=== PATIENT | female | born 1975 | race Caucasian/White ===

== ENCOUNTER 2016-11-03 00:27 | Emergency (ER) | payer BC ==
[~2016-11-03] VITALS: Ht 165.1 cm; Wt 51.4 kg
[~2016-11-03 00:27] MED LIST: BCPILLS PO
[2016-11-03 00:29] VITALS: TEMP 37.1; Ht 165.1 cm; Wt 51.4 kg
[2016-11-03] MEDS ORDERED: SODIUM CHLORIDE 0.9% 1000ML 1,000 ML IV STA (00:38)
[2016-11-03] MEDS ORDERED: LORAZEPAM 2 MG/ML 1 ML VIAL IV STA (00:38)
[2016-11-03] MEDS ORDERED: LXP10 PO (00:59)
[2016-11-03] MEDS ORDERED: DESO1TAB17 PO (00:59)
[2016-11-03] MEDS ORDERED: XNX25 PO (00:59)
[2016-11-03 01:08] LABS: BASO % 0.2 %; BASO ABS # 0.02 K/uL (0-0.2); COMPLETE YES; EOS % 0.7 %; HEMATOCRIT 36.3 % (37-47); IG% 0.1 %; LYMPH % 44.7 %; LYMPH ABS # 3.87 K/uL (1.2-3.4); MEAN CELL VOLUME 90.5 fL (80-100); MEAN CORPUSCULAR HEMOGLOBIN 30.7 pg (25-34); MEAN CORPUSCULAR HGB CONC 33.9 g/dl (32-36); MEAN PLATELET VOLUME 10.2 fL (7.4-10.4); MONO % 4.7 %; NEUT % 49.6 %; PLATELET COUNT 261 K/uL (130-400); RED BLOOD COUNT 4.01 M/uL (4.2-5.4); WHITE BLOOD COUNT 8.65 K/uL (4.8-10.8)
[2016-11-03 01:13] LABS: BLOOD UREA NITROGEN 11 mg/dl (7-18); BUN/CREATININE RATIO 12.7 (10-20); CALCIUM 9.4 mg/dl (8.5-10.1); CARBON DIOXIDE 24 mmol/L (21-32); CHLORIDE 102 mmol/L (98-107); CREATININE 0.83 mg/dl (0.60-1.20); GLUCOSE 105 mg/dl (70-99); POTASSIUM 3.5 mmol/L (3.5-5.1); SODIUM 138 mmol/L (136-145)
--- NOTE | 2016-11-03 03:27 | EMERGENCY ROOM VISIT NOTE ---
History Report prepared by Juanibepifanio: Henok Pino Under the Supervision of: Dr. Chun Lorenzo M.D. First contact with patient: 00:32 Chief Complaint: ANXIETY Stated Complaint: FEELS LIKE GOING TO PASSOUT,HEART RACING History of Present Illness The patient is a 40 year old female who presents to the Emergency Room with complaints of constant anxiety beginning just prior to arrival. Her symptoms include lightheadedness, and racing heart. She states that she woke up with her symptoms in the middle of the night. The patient denies any chest pain, SOB, or leg swelling. She has no history of blood clots. She states "I just get worried that I'm going to have a heart attack". The patient admits to having increased stress recently with her job and relationships. She denies any suicidal or homicidal ideation. She states that she feels safe at home. The patient notes that she has a history of anxiety and was started on Lexapro two days ago. She states that she took a dose of Xanax just prior to arrival, but has seen minimal relief. She admits to drinking a small amount of wine tonight as well. Source of History: patient Onset: just prior to arrival Quality: other (anxiety) Timing: constant Associated Symptoms: No SOB, No chest pain Note: The patient also complains of light headedness, and racing heart. She denies any leg swelling. Review of Systems See HPI for pertinent positives & negatives. A total of 10 systems reviewed and were otherwise negative. Past Medical & Surgical Medical Problems: (1) section (2) Syncope Family History No pertinent family history stated. Social History Smoking Status: Never Smoker Alcohol Use: occasionally Drug Use: none Marital Status: Housing Status: lives with family Occupation Status: employed Current/Historical Medications Scheduled Desogestrel-Ethinyl Estradiol (Desogestrel/Ethin... 0.15-0.02/0.01 mg (13/02)), 1 TAB PO DAILY Escitalopram Oxalate (Escitalopram Oxalate), 10 MG PO DAILY Scheduled PRN Alprazolam (Alprazolam), 0.25 MG PO TID PRN for Anxiety Allergies Coded Allergies: No Known Allergies (Verified , 11/03/16) Physical Exam Vital Signs Date Time Temp Pulse Resp B/P Pulse Ox O2 Delivery O2 Flow Rate FiO2 11/03/16 05:48 110 16 116/76 100 Room Air 11/03/16 03:32 85 18 123/80 100 Room Air 11/03/16 01:23 86 18 97 Room Air 11/03/16 00:29 37.1 128 18 118/62 96 Room Air Physical Exam GENERAL: Patient is very anxious appearing and in mild distress. HEENT: No acute trauma, normocephalic atraumatic, mucous membranes moist, no nasal congestion, no scleral icterus. NECK: No stridor, no adenopathy, no meningismus, trachea is midline. LUNGS: No dyspnea. Clear to auscultation and equal bilaterally. No wheeze, no rhonchi. HEART: Tachycardic rate with a regular rhythm. No murmurs, rubs, gallops appreciated. ABDOMEN: Soft, nontender, bowel sounds positive, no masses appreciated, no peritonitis. BACK: No midline tenderness, no CVA tenderness EXTREMITIES: Normal motion all extremities, no cyanosis, no edema. NEUROLOGIC: Alert and oriented, no acute motor or sensory deficits, no focal weakness, cranial nerves grossly intact. SKIN: No rash, no jaundice, no diaphoresis. Medical Decision & Procedures Laboratory Results 11/03/16 00:45 Red Blood Count 4.01, Mean Corpuscular Volume 90.5, Mean Corpuscular Hemoglobin 30.7, Mean Corpuscular Hemoglobin Concent 33.9, Mean Platelet Volume 10.2, Neutrophils (%) (Auto) 49.6, Lymphocytes (%) (Auto) 44.7, Monocytes (%) (Auto) 4.7, Eosinophils (%) (Auto) 0.7, Basophils (%) (Auto) 0.2, Neutrophils # (Auto) 4.28, Lymphocytes # (Auto) 3.87, Monocytes # (Auto) 0.41, Eosinophils # (Auto) 0.06, Basophils # (Auto) 0.02 11/03/16 00:45 Test 11/03/16 00:45 White Blood Count 8.65 K/uL (4.8-10.8) Red Blood Count 4.01 M/uL (4.2-5.4) Hemoglobin 12.3 g/dL (12.0-16.0) Hematocrit 36.3 % (37-47) Mean Corpuscular Volume 90.5 fL (80-100) Mean Corpuscular Hemoglobin 30.7 pg (25-34) Mean Corpuscular Hemoglobin Concent 33.9 g/dl (32-36) Platelet Count 261 K/uL (130-400) Mean Platelet Volume 10.2 fL (7.4-10.4) Neutrophils (%) (Auto) 49.6 % Lymphocytes (%) (Auto) 44.7 % Monocytes (%) (Auto) 4.7 % Eosinophils (%) (Auto) 0.7 % Basophils (%) (Auto) 0.2 % Neutrophils # (Auto) 4.28 K/uL (1.4-6.5) Lymphocytes # (Auto) 3.87 K/uL (1.2-3.4) Monocytes # (Auto) 0.41 K/uL (0.11-0.59) Eosinophils # (Auto) 0.06 K/uL (0-0.5) Basophils # (Auto) 0.02 K/uL (0-0.2) RDW Standard Deviation 41.8 fL (36.4-46.3) RDW Coefficient of Variation 12.7 % (11.5-14.5) Immature Granulocyte % (Auto) 0.1 % Immature Granulocyte # (Auto) 0.01 K/uL (0.00-0.02) D-Dimer < 190 ug/L FEU (0-500) Anion Gap 12.0 mmol/L (3-11) Est Creatinine Clear Calc Drug Dose 73.8 ml/min Estimated GFR () 103.0 Estimated GFR (Non- 88.8 BUN/Creatinine Ratio 12.7 (10-20) Calcium Level 9.4 mg/dl (8.5-10.1) Troponin I < 0.015 ng/ml (0-0.045) Thyroid Stimulating Hormone (TSH) 5.030 uIu/ml (0.300-4.500) Laboratory results as reviewed by me. Medications Administered Medications (Trade) Dose Ordered Sig/Jes Route Start Time Stop Time Status Last Admin Dose Admin Lorazepam 1 mg 1 mg NOW STAT IV 11/03/16 00:38 11/03/16 00:39 DC 11/03/16 00:53 1 MG Sodium Chloride (Nss 1000ml) 1,000 ml @ 999 mls/hr Q1H1M STAT IV 11/03/16 00:38 11/03/16 01:38 DC 11/03/16 00:53 999 MLS/HR Lorazepam (Ativan 1MG Home Pack) 1 homepack UD ONCE PO 11/03/16 06:15 11/03/16 06:16 DC 11/03/16 06:21 1 HOMEPACK ECG Indication: tachycardia Rate (beats per minute): 119 Rhythm: sinus tachycardia Findings: no acute ischemic change, no ectopy ED Course 0033: The patient was evaluated in room A9B. A complete history and physical exam was performed. 0038: Ordered NSS 1000 mL @ 999 mL/hr IV, Ativan Inj 1 mg IV. 0122: I reassessed the patient. She feels much better. 0307: I checked in on the patient. She is fast asleep. 0529: The patient is still fast asleep. 0605: Reevaluated the patient. She is awake, alert and oriented. Her heart rate is in the 80s. She would like to go home. Discussed results and discharge instructions: the patient verbalized understanding and agreement. The patient is ready for discharge. 0615: Ordered Ativan 1 mg homepack PO. Medical Decision Differential: NSR, SVT, PACs, PVCs, Anxiety, Cardiac Dysrhythmia, Endocrine Dysfunction, Electrolyte/Metabolic Abnormality, Pulmonary Embolism, Infectious, amongst other pathologies entertained. 40 yr very pleasant female with history of anxiety disorder and recently started on anti-depressant arrives for evaluation of anxiety/tachycardia. Clearly anxious on arrival but vastly improved with ativan. EKG sinus tach. Labs unremarkable (mildly elevated TSH of non-significance to this episode). Is on control thus dimer done which is negative thus I do not feel CT PE indicated. No evidence of ACS. No infectious findings. Clear lungs thus will hold on any imaging. Electrolytes look good. HR much improved with ativan. Feeling better. As drove self here she was monitored for a few hours prior to discharge. She admits stressful job and some issues with relationship. Denies suicidal/homicidal ideation and denies concerns for abuse at home. Will request Case Management contact her to help set up outpatient mental health counselling/evaluation. Stable throughout evening without further issue. Awake and alert without any complaints this morning. Discussed RTED at any time if worsening symptoms or other concerns. Impression Primary Impression: Acute anxiety Additional Impression: Tachycardia Scribe Attestation The scribe's documentation has been prepared under my direction and personally reviewed by me in its entirety. I confirm that the note above accurately reflects all work, treatment, procedures, and medical decision making performed by me. Departure Information Dispostion Home / Self-Care Referrals Shelby Pineda M.D. (PCP) Patient Instructions Anxiety Body Response, My [facility] Additional Instructions If you have worsening palpitations, passing out, chest pain or other concerning symptoms, return for further evaluation immediately or call 911. You have received a benzodiazepine sedative medication. These medications may cause drowsiness and should not be used with other sedative medications. Do not drive, drink alcohol, perform dangerous activities, nor make important decisions after taking these medications. Problem Qualifiers
[2016-11-03 05:48] VITALS: BP 116/76; PULSE 110; O2SAT 100
[2016-11-03] MEDS ORDERED: ATIVAN 1MG HOMEPACK PO ONE (06:15)
== END 2016-11-03 06:23 | disposition home or self-care (01) ==
LOC: C.EDB 00:28 → C.EDA 06:23
DX: F41.9 Anxiety disorder, unspecified (principal); R00.0 Tachycardia, unspecified; Z79.899 Other long term (current) drug therapy

== ENCOUNTER 2017-01-03 03:10 | Emergency (ER) | payer BC ==
[~2017-01-03] VITALS: Ht 165.1 cm; Wt 53.1 kg
[~2017-01-03 03:10] MED LIST changes: -BCPILLS PO; +DESO1TAB17 PO; +LXP10 PO; +XNX25 PO
[2017-01-03 03:13] VITALS: TEMP 36.7; Ht 165.1 cm; Wt 53.1 kg
[2017-01-03] MEDS ORDERED: SODIUM CHLORIDE 0.9% 1000ML 1,000 ML IV STA ×2 (03:23)
[2017-01-03] MEDS ORDERED: LORAZEPAM 2 MG/ML 1 ML VIAL IV STA (03:23)
[2017-01-03 03:26] VITALS: O2SAT 100
[2017-01-03 03:38] LABS: HEMATOCRIT 36.5 % (37-47); MEAN CELL VOLUME 89.7 fL (80-100); MEAN CORPUSCULAR HGB CONC 34.5 g/dl (32-36); MEAN PLATELET VOLUME 9.6 fL (7.4-10.4); PLATELET COUNT 268 K/uL (130-400); RED BLOOD COUNT 4.07 M/uL (4.2-5.4); WHITE BLOOD COUNT 9.57 K/uL (4.8-10.8)
[2017-01-03 04:00] LABS: ALT/SGPT 23 U/L (12-78); AST/SGOT 14 U/L (15-37); BASO % 0.3 %; BASO ABS # 0.03 K/uL (0-0.2); BLOOD UREA NITROGEN 10 mg/dl (7-18); CALCIUM 8.9 mg/dl (8.5-10.1); CARBON DIOXIDE 25 mmol/L (21-32); CHLORIDE 104 mmol/L (98-107); COMPLETE YES; CREATININE 0.81 mg/dl (0.60-1.20); EOS % 0.9 %; GLUCOSE 102 mg/dl (70-99); IG% 0.1 %; LYMPH % 52.9 %; LYMPH ABS # 5.06 K/uL (1.2-3.4); MAGNESIUM 2.2 mg/dl (1.8-2.4); MONO % 6.3 %; NEUT % 39.5 %; POTASSIUM 3.2 mmol/L (3.5-5.1); SODIUM 142 mmol/L (136-145)
[2017-01-03 04:02] LABS: PREG INTERNAL NEGATIVE QC NEG CLEAR BACKGROUND; PREG INTERNAL POSITIVE QC POS CONTROL LINE
[2017-01-03] MEDS ORDERED: POTASSIUM CHLORIDE 10 MEQ TABCR PO STA (04:06)
[2017-01-03 04:11] LABS: ALKALINE PHOSPHATASE 61 U/L (45-117)
--- NOTE | 2017-01-03 04:20 | EMERGENCY ROOM VISIT NOTE ---
History First contact with patient: 03:20 Chief Complaint: RAPID HEART RATE Stated Complaint: RAPID HEART RATE Nursing Triage Summary: c/o waking from sleep with rapid hr denies pain states this happened before states hx of anxiety. History of Present Illness The patient is a 41 year old female who presents to the Emergency Room with complaints of anxiety and racing heart for the past 30 minutes. Patient had a similar episode 2 months ago. She suffers from anxiety. She had a lot of iced tea yesterday. Patient denies chest pain, dyspnea, fever, chills, cough, congestion, abdominal pain, vomiting, diarrhea, leg pain or swelling. Patient states she exercises regularly and has no difficulties with this. Patient has never seen a balance wheel arm burnisher. No stress test or echo. Review of Systems See HPI for pertinent positives & negatives. A total of 10 systems reviewed and were otherwise negative. Past Medical/Surgical History Medical Problems: (1) section (2) Syncope Anxiety Social History Smoking Status: Never Smoker Smokeless Tobacco Use: No Alcohol Use: occasionally Drug Use: none Marital Status: Housing Status: lives with family Occupation Status: employed Current/Historical Medications Scheduled Desogestrel-Ethinyl Estradiol (Desogestrel/Ethin... 0.15-0.02/0.01 mg (13/02)), 1 TAB PO DAILY Escitalopram Oxalate (Escitalopram Oxalate), 10 MG PO DAILY Scheduled PRN Alprazolam (Alprazolam), 0.25 MG PO TID PRN for Anxiety Allergies Coded Allergies: No Known Allergies (Verified , 11/03/16) Physical Exam Vital Signs Date Time Temp Pulse Resp B/P Pulse Ox O2 Delivery O2 Flow Rate FiO2 01/03/17 04:00 89 18 103/69 97 Room Air 01/03/17 03:32 109 18 116/72 100 Room Air 01/03/17 03:28 116 01/03/17 03:26 100 Room Air 01/03/17 03:24 100 Room Air 01/03/17 03:24 100 Room Air 01/03/17 03:13 36.7 145 20 135/78 96 Room Air Physical Exam VITALS: Vitals are noted on the nurse's note and reviewed by myself. Vital signs tachycardic. GENERAL: Pleasant anxious-appearing female, in no acute distress, nondiaphoretic , well-developed well-nourished. SKIN: The skin was without rashes, erythema, edema, or bruising. There is no tenting of the skin. Capillary reflex less than 2 seconds. HEAD: Normocephalic atraumatic. EARS: External auditory canals clear, tympanic membranes pearly garber without erythema or effusion bilaterally. EYES: Pupils equal round and reactive to light and accommodation. Conjunctivae without injection, sclerae without icterus. Extraocular movements intact. NOSE: Patent, turbinates without inflammation or discharge. MOUTH: Mucous membranes moist. Pharynx without erythema or exudate. Uvula midline. Airway patent. Tongue does not deviate. NECK: Supple without nuchal rigidity. No lymphadenopathy. No thyromegaly. Cervical spine is nontender. No JVD. HEART: Tachycardic Regular rate and rhythm without murmurs gallops or rubs. LUNGS: Clear to auscultation bilaterally without wheezes, rales or rhonchi. No dullness to percussion. No retractions or accessory muscle use. ABDOMEN: Positive bowel sounds x 4. Normal tympanic percussion. Soft, nontender, without masses or organomegaly. Lopez sign negative. No guarding or rebound tenderness. MUSCULOSKELETAL: No muscle atrophy, erythema, or edema noted. NEURO: Patient was alert and oriented to person place and time. Normal sensation to light and sharp touch. No focal neurological deficits. Medical Decision & Procedures Laboratory Results 01/03/17 03:20 Red Blood Count 4.07, Mean Corpuscular Volume 89.7, Mean Corpuscular Hemoglobin 31.0, Mean Corpuscular Hemoglobin Concent 34.5, Mean Platelet Volume 9.6, Neutrophils (%) (Auto) 39.5, Lymphocytes (%) (Auto) 52.9, Monocytes (%) (Auto) 6.3, Eosinophils (%) (Auto) 0.9, Basophils (%) (Auto) 0.3, Neutrophils # (Auto) 3.78, Lymphocytes # (Auto) 5.06, Monocytes # (Auto) 0.60, Eosinophils # (Auto) 0.09, Basophils # (Auto) 0.03 01/03/17 03:20 Test 01/03/17 03:20 White Blood Count 9.57 K/uL (4.8-10.8) Red Blood Count 4.07 M/uL (4.2-5.4) Hemoglobin 12.6 g/dL (12.0-16.0) Hematocrit 36.5 % (37-47) Mean Corpuscular Volume 89.7 fL (80-100) Mean Corpuscular Hemoglobin 31.0 pg (25-34) Mean Corpuscular Hemoglobin Concent 34.5 g/dl (32-36) Platelet Count 268 K/uL (130-400) Mean Platelet Volume 9.6 fL (7.4-10.4) Neutrophils (%) (Auto) 39.5 % Lymphocytes (%) (Auto) 52.9 % Monocytes (%) (Auto) 6.3 % Eosinophils (%) (Auto) 0.9 % Basophils (%) (Auto) 0.3 % Neutrophils # (Auto) 3.78 K/uL (1.4-6.5) Lymphocytes # (Auto) 5.06 K/uL (1.2-3.4) Monocytes # (Auto) 0.60 K/uL (0.11-0.59) Eosinophils # (Auto) 0.09 K/uL (0-0.5) Basophils # (Auto) 0.03 K/uL (0-0.2) RDW Standard Deviation 43.3 fL (36.4-46.3) RDW Coefficient of Variation 13.2 % (11.5-14.5) Immature Granulocyte % (Auto) 0.1 % Immature Granulocyte # (Auto) 0.01 K/uL (0.00-0.02) Anion Gap 13.0 mmol/L (3-11) Est Creatinine Clear Calc Drug Dose 77.4 ml/min Estimated GFR () 105.3 Estimated GFR (Non- 90.8 BUN/Creatinine Ratio 12.0 (10-20) Calcium Level 8.9 mg/dl (8.5-10.1) Magnesium Level 2.2 mg/dl (1.8-2.4) Total Bilirubin 0.4 mg/dl (0.2-1) Direct Bilirubin 0.1 mg/dl (0-0.2) Aspartate Amino Transf (AST/SGOT) 14 U/L (15-37) Alanine Aminotransferase (ALT/SGPT) 23 U/L (12-78) Alkaline Phosphatase 61 U/L (45-117) Troponin I < 0.015 ng/ml (0-0.045) Total Protein 7.4 gm/dl (6.4-8.2) Albumin 3.7 gm/dl (3.4-5.0) Thyroid Stimulating Hormone (TSH) 5.110 uIu/ml (0.300-4.500) Human Chorionic Gonadotropin, Qual NEG (NEG) Medications Administered Medications (Trade) Dose Ordered Sig/Jes Route Start Time Stop Time Status Last Admin Dose Admin Sodium Chloride 1,000 ml @ 999 mls/hr Q1H1M STAT IV 01/03/17 03:23 01/03/17 04:23 01/03/17 03:30 999 MLS/HR Sodium Chloride (Nss 1000ml) 1,000 ml @ 125 mls/hr Q8H STAT IV 01/03/17 03:23 01/03/17 11:22 01/03/17 03:23 125 MLS/HR Lorazepam (Ativan Inj) 1 mg NOW STAT IV 01/03/17 03:23 01/03/17 03:25 DC 01/03/17 03:30 1 MG ED Course Prior records/ancillary studies reviewed. Triage Nursing notes reviewed. The patient's history was concerning for racing heart. Differential diagnosis: Etiologies such as anxiety, premature contractions, electrolyte abnormality, cardiac dysrhythmia, thyroid dysfunction, pulmonary embolism, infection, gastrointestinal, as well as others were entertained. Physical examination: Benign as above. ER treatment provided: Ativan, IV fluids On reassessment the patient felt better. Diagnostic interpretation by me: Cardiac monitoring revealed no dysrhythmia. The electrocardiogram was negative for pathologic change. Normal sinus, normal intervals, normal axis, no acute ST-T wave changes, rate of 134. Impression sinus tachycardia interpreted by myself The labs revealed no cyanosis. Mildly elevated TSH Imaging studies: Chest x-ray with no acute consolidation, pneumothorax or free air per my interpretation This appears to be consistent with anxiety with tachycardia. Patient felt much better to be medicated as above. This is her second visit for this complaint. She had unremarkable workup as above. She is advised to follow-up family care and the cardiology further evaluation and workup. She is advised to decrease her stress, caffeine, alcohol and tobacco. She is advised to return to the ER mainly for tachycardia, chest pain, dyspnea, worsened signs or symptoms or as needed. By the evaluation outlined above emergent etiologies such as electrolyte abnormality, cardiac dysrhythmia, thyroid dysfunction, pulmonary embolism, infection, as well as others were deemed relatively unlikely. The pt informed about the findings as listed above. All questions were answered and pleased with the treatment. Return instructions were outlined and the patient was discharged in stable condition. Outpatient prescription management: Ativan Referral: The patient was referred back to their primary care physician for follow-up in 2 to 3 days for a recheck of the current condition case reviewed with my Attending Medical Decision As above Impression Primary Impression: Anxiety Additional Impression: Tachycardia Departure Information Dispostion Home / Self-Care Condition GOOD Referrals Shelby Pineda M.D. (PCP) Patient Instructions My [facility] Additional Instructions Ativan 1 m tablet every 6-8 hours as needed for anxiety. No alcohol or driving on this medication. Rest. Decrease stress. Avoid excessive caffeine. Continue current medications. Follow-up family care in 2-3 days. Recommend further workup for your fast heart rate with cardiology. Return to ER sooner for chest pain, difficulty breathing, racing heart, worsening signs or symptoms or as needed. Problem Qualifiers
[2017-01-03] MEDS ORDERED: ATIVAN 1MG HOMEPACK PO ONE (04:30)
[2017-01-03 04:42] VITALS: BP 118/78; PULSE 88; O2SAT 98
--- NOTE | 2017-01-03 07:26 | DIAGNOSTIC IMAGING REPORT ---
SINGLE VIEW CHEST CLINICAL HISTORY: Atypical chest pain. FINDINGS: An AP, portable, upright chest radiograph is compared to study dated 08/28/2014. The examination is degraded by portable technique and patient rotation. The cardiomediastinal silhouette is unremarkable. The lungs and pleural spaces are clear. No pneumothorax is seen. The bony thorax is grossly intact. IMPRESSION: No active disease in the chest. Electronically signed by: Rahul Rodriguez M.D. 01/03/2017 7:24 AM Dictated Date/Time: 01/03/2017 7:24 AM
== END 2017-01-03 04:43 | disposition home or self-care (01) ==
LOC: C.EDB 03:11 → C.EDA 04:43
DX: F41.9 Anxiety disorder, unspecified (principal); R00.0 Tachycardia, unspecified